=== PATIENT | female | born 1990 | race Caucasian/White ===

== ENCOUNTER 2018-12-30 08:01 | Outpatient (CLI) | payer BC ==
--- NOTE | 2018-12-30 10:43 | ULT ---
Exam: Transabdominal and endovaginal pelvic ultrasound HISTORY:Abdominal pain. Epigastric pain. 3 weeks of bloating COMPARISON: 03/17/2016 TECHNIQUE: Transabdominal and endovaginal imaging of the pelvis is performed. Ovaries are interrogate d with grayscale, color flow, Doppler imaging and spectral wave form analysis FINDINGS: Uterus: No myometrial masses. Uterus measurin.5 x 2.7 x 4.3 cm. Endometrium: Partially visualized endometrium. If there is an intrauterine device, positioning does n ot appear to be appropriate based upon sonography. Additional evaluation is recommended. Endometrium diameter: 0.5 cm. . Free fluid: None Left ovary: Normal echotexture. Left ovary measurements: 3.2 x 1.7 x 3.2 cm Right ovary: Normal echotexture Right ovary measurement: 2.9 x 2.1 x 3.3 cm Ovarian Doppler: There is vascular flow to the left and right ovary. IMPRESSION: 1. Suboptimal evaluation of the endometrium. 2. Questionable intrauterine device does not appear to be appropriately positioned. Clinical correlat ion is essential. CODE T
== END 2018-12-30 08:02 | disposition home or self-care (01) ==
LOC: SCSULT 08:01
PROVIDERS: ATTEND Family Medicine
DX: R10.84 Generalized abdominal pain (principal)
CPT/HCPCS: 76856

== ENCOUNTER 2019-01-02 08:54 | Outpatient (CLI) | payer BC ==
--- NOTE | 2019-01-02 11:20 | ULT ---
SONOGRAM RIGHT BREAST: Date: 01/02/19 HISTORY: Right breast lump. FINDINGS: Sonographic evaluation of the superolateral aspect of the right breast was performed. Heterogeneously dense fibroglandular tissue. No solid or cystic masses visible. IMPRESSION: No sonographic abnormalities of the superolateral aspect of the right breast were seen in area of rep orted palpable concern. POS: COLLETTE
== END 2019-01-02 08:55 | disposition home or self-care (01) ==
LOC: BICULT 08:54
PROVIDERS: ATTEND Family Medicine
DX: N63.0 Unspecified lump in unspecified breast (principal)

== ENCOUNTER 2019-03-25 07:46 | Outpatient (CLI) | payer BC ==
--- NOTE | 2019-03-25 10:56 | NM ---
EXAM: Nuclear medicine hepatobiliary scan HISTORY: Right upper quadrant abdominal pain TECHNIQUE: A nuclear medicine hepatobiliary scan was performed after administration of 5.5 mCi of marcus hnetium 99m mebrofenin. A gallbladder ejection fraction was performed after administration of Ensure by mouth. COMPARISON: None FINDINGS: Prompt uptake of the radiopharmaceutical by the liver is seen. No photopenic liver defects are seen. Biliary activity is seen within 7 minutes. Gallbladder activity is seen within 7 minutes. Bowel activity is seen within 35 minutes. A gallbladder ejection fraction was calculated at 72%. IMPRESSION: Normal hepatobiliary scan
== END 2019-03-25 07:47 | disposition home or self-care (01) ==
LOC: NM 07:46
PROVIDERS: ATTEND Internal Medicine Gastroenterology
DX: R10.11 Right upper quadrant pain (principal); R14.0 Abdominal distension (gaseous)
CPT/HCPCS: 78227; A9537

== ENCOUNTER 2020-01-27 08:14 | Outpatient (CLI) | payer BC ==
--- NOTE | 2020-01-27 09:37 | CT ---
Exam: Facial bone CT without contrast HISTORY: Right-sided issue with drainage and pain in the right nose. COMPARISON: None FINDINGS: Visualized brain parenchyma demonstrates appropriate attenuation. Bilateral ocular lenses are appropriately located. Both globes are intact. Retrobulbar fat is preserv ed. Symmetric attenuation of the optic nerves and ocular rectus muscles. Visualized aerodigestive tract is patent. No mucosal abnormality. Limited evaluation the oral cavity due to dental artifact. Midline fatty raphae of the tongue is pres erved. Epiglottis is normal caliber. Preepiglottic fat is preserved. There is no prevertebral soft tissue swelling Central spinal canal and neural foramina are patent. Upper cervical spine does not demonstrate any ab normality The maxillofacial bones, osseous margins of the sinuses and orbits are intact. No erosive, destructiv e or hypertrophic changes. Adequate aeration of the paranasal sinuses and mastoid air cells Coronal reformatted images demonstrate patent bilateral ostiomeatal complexes. 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 There is mild leftward deviation of an intact nasal septum. IMPRESSION: No significant sinonasal disease or opacification.
== END 2020-01-27 08:15 | disposition home or self-care (01) ==
LOC: SCSCT 08:14
PROVIDERS: ATTEND Allergy & Immunology
DX: J32.9 Chronic sinusitis, unspecified (principal)
CPT/HCPCS: 70486

== ENCOUNTER 2021-05-04 18:57 | Emergency (ER) | payer BC ==
[2021-05-04 20:25] LABS: #Basophils 0.1 thou/uL (0.0-0.2); #Eosinphils 0.2 thou/uL (0.0-0.7); #Lymphocytes 2.7 thou/uL (1.20-3.40); #Monocytes 0.6 thou/uL (0.11-0.59); #Neutrophils 5.2 thou/uL (1.40-6.50); %Basophils 0.7 % (0.0-1.0); %Eosinophils 1.8 % (0.0-10.0); %Monocytes 7.3 % (0.0-10.0); %Neutrophils 59.2 % (42.0-75.0); Hemoglobin 13.6 g/dL (12.0-16.0); Mean Corpuscular HGB CONC 34.6 g/dL (32.0-36.0); Mean Corpuscular Hemoglobin 31.2 pg (27.0-31.0); Mean Corpuscular Volume 90.1 fL (78.0-98.0); Mean Platelet Volume 6.6 fL (7.4-10.4); Platelet Count 246 thou/uL (130-400); RBC Distribution Width 11.4 % (11.5-14.5); Red Blood Cell (RBC) Count 4.37 mill/uL (4.20-5.40); White Blood Cell (WBC) Count 8.7 thou/uL (4.8-10.8)
[2021-05-04 20:48] LABS: ALT (SGPT) 12 U/L (8-55); AST (SGOT) 14 U/L (5-34); Albumin 4.5 g/dL (3.5-5.0); Alkaline Phosphatase 65 U/L (40-110); Anion Gap 12 mmol/L (10-20); BUN (Urea Nitrogen) 13 mg/dL (7.0-18.7); Bilirubin, Total 0.3 mg/dL (0.2-1.2); Calc. Creatinine Clearance 0 mL/min (70-130); Calcium 9.6 mg/dL (7.8-10.44); Carbon Dioxide 26 mmol/L (22-29); Chloride 104 mmol/L (98-107); Globulin 2.8 g/dL (2.4-3.5); Glucose 114 mg/dL (70-105); Protein, Total 7.3 g/dL (6.0-8.3); Sodium 138 mmol/L (136-145)
[2021-05-04 22:14] LABS: CK (CPK) 104 U/L (29-168)
[2021-05-04 22:21] LABS: BHCG - Serum Negative (NEGATIVE); Pregs Control Background? CLEAR/WHITE (CLR/WHITE); Pregs Control Bar Appear? YES (CONTROL BAR)
== END 2021-05-05 00:27 | disposition home or self-care (01) ==
LOC: ERS 18:57
DX: R00.2 Palpitations (principal); Z79.51 Long term (current) use of inhaled steroids; Z79.899 Other long term (current) drug therapy
CPT/HCPCS: 36415; 71045; 71275; 80053; 82550; 83735; 84443; 84484; 84703; 85025; 85379; 93005